=== PATIENT | female | born 1985 | race Caucasian/White ===

== ENCOUNTER 2016-10-08 07:42 | Emergency (ER) | payer OTHER ==
[~2016-10-08] VITALS: Ht 160 cm; Wt 92.0 kg
[~2016-10-08 07:42] MED LIST: ACETAMINOPHEN325 M1 PO
[2016-10-08] MEDS ORDERED: PERCOCET 5/31 TABLET PO (09:45)
[2016-10-08 10:02] VITALS: BP 131/84
== END 2016-10-08 10:04 | disposition home or self-care (01) ==
LOC: EME 07:42
DX: S80.02XA Contusion of left knee, initial encounter (principal); M25.551 Pain in right hip; W18.30XA Fall on same level, unspecified, initial encounter
CPT/HCPCS: 73502; 73564; 99281; 99284